=== PATIENT | male | born 1950 | race African-American/Black ===

== ENCOUNTER 2017-09-14 21:08 | Inpatient (IN) | payer OTHER ==
[2017-09-14] MEDS ORDERED: ACETAMINOPHEN 325 MG TAB PO (23:00)
[2017-09-14] MEDS ORDERED: PENDING SANTYL ORDER FOR WOUND CARE XX (23:30)
[2017-09-14] MEDS: morphine 2 MG INJ IV (23:31)
[2017-09-15 00:50] LABS: WHITE BLOOD COUNT 9.4 10^3/ul (4.8-10.8)
[2017-09-15 00:50] LABS: ABNORMAL IP MESSAGE 1; HEMATOCRIT 18.4 % (42.0-52.0); MEAN CORPUSCULAR HEMOGLOBIN 30.7 pg (29.0-33.0); MEAN CORPUSCULAR HGB CONC 34.2 g/dl (32.0-37.0); MEAN CORPUSCULAR VOLUME 89.8 fl (82.0-101.0); MEAN PLATELET VOLUME 10.2 fl (7.4-10.4); NUCLEATED RED BLOOD CELLS% 1.8 /100WBC (0.0-0.0); PLATELET COUNT 250 10^3/UL (140-415); POSITIVE DIFF @See below; RED BLOOD COUNT 2.05 10^6/ul (4.70-6.10); RED CELL DISTRIBUTION WIDTH 23.5 % (11.5-14.5)
[2017-09-15 01:05] LABS: HEMOGLOBIN 6.3 g/dl (14.0-18.0)
[2017-09-15 01:06] LABS: PATH REVIEW? YES
[2017-09-15 01:07] LABS: ADD MAN DIFF? YES
[2017-09-15 01:09] LABS: ALANINE AMINOTRANSFERASE 19 IU/L (13-69); ALBUMIN 3.3 g/dl (3.3-4.9); ALBUMIN/GLOBULIN RATIO 0.76; ALKALINE PHOSPHATASE 222 IU/L (42-121); ANION GAP 13 (8-16); ASPARTATE AMINO TRANSFERASE 31 IU/L (15-46); BILIRUBIN,INDIRECT 1.1 mg/dl (0-1.1); BILIRUBIN,TOTAL 1.4 mg/dl (0.2-1.3); BLOOD UREA NITROGEN 29 mg/dl (7-20); CALCIUM 8.7 mg/dl (8.4-10.2); CARBON DIOXIDE 22 mmol/L (21-31); CHLORIDE 110 mmol/L (97-110); CREATININE 3.45 mg/dl (0.61-1.24); GLUCOSE 138 mg/dl (70-220); PHOSPHORUS 4.5 mg/dl (2.5-4.9); POTASSIUM 4.2 mmol/L (3.5-5.1); SODIUM 141 mmol/L (135-144); TOTAL PROTEIN 7.6 g/dl (6.1-8.1)
[2017-09-15] MEDS ORDERED: SOD CHLORIDE 0.9% 250 ML IV* (01:11)
[2017-09-15 03:28] LABS: IRON 94 ug/dl (35-150)
[2017-09-15 03:37] LABS: % IRON SATURATION 45 % SAT (22-52); TOTAL IRON BINDING CAPACITY 209 ug/dl (241-421)
[2017-09-15] MEDS ORDERED: NACL 0.9% 3 ML SYG IV (04:00)
[2017-09-15] MEDS ORDERED: ALBUTEROL/IPRATROPIUM (NEB) 3 ML AMP HHN (04:00)
[2017-09-15] MEDS ORDERED: ONDANSETRON 4 MG INJ IV (04:00)
[2017-09-15] MEDS ORDERED: traMADol 50 MG TAB PO (04:00)
[2017-09-15] MEDS: morphine 2 MG INJ IV (05:18)
[2017-09-15] MEDS: FUROSEMIDE 40 MG TAB PO (05:18)
[2017-09-15 07:01] LABS: ANISOCYTOSIS 3+ (0-0); BASOPHILS % (M) 1 % (0-2); EOSINOPHILS % (M) 6 % (0-7); ERYTHROBLAST% (NRBC) (M) 1 % (0-0); GIANT THROMBO% (M) 6 % (0-0); LYMPHOCYTES #M 2.3 10^3/ul (0.8-2.9); LYMPHOCYTES % (M) 25 % (15-51); MONOCYTE #M 1.6 10^3/ul (0.3-0.9); MONOCYTES % (M) 18 % (0-11); PLATELET ESTIMATE NORMAL; POIKILOCYTOSIS 1+ (0-0); POLYCHROMASIA 3+ (0-0); SEGMENTED NEUTROPHILS (M) % 50 % (39-77); SMUDGE%M 3 % (0-0)
[2017-09-15 08:34] LABS: ADD MAN DIFF? NO
[2017-09-15 08:36] LABS: ABNORMAL IP MESSAGE 1; BASOPHIL # 0.1 10^3/ul (0.0-0.1); BASOPHILS % 1.1 % (0.0-2.0); EOSINOPHILS # 0.4 10^3/ul (0.0-0.5); EOSINOPHILS % 4.6 % (0.0-7.0); HEMATOCRIT 19.2 % (42.0-52.0); LYMPHOCYTES # 2.5 10^3/ul (0.8-2.9); LYMPHOCYTES % 27.3 % (15.0-51.0); MEAN CORPUSCULAR HEMOGLOBIN 30.6 pg (29.0-33.0); MEAN CORPUSCULAR HGB CONC 34.4 g/dl (32.0-37.0); MEAN CORPUSCULAR VOLUME 88.9 fl (82.0-101.0); MEAN PLATELET VOLUME 10.1 fl (7.4-10.4); MONOCYTE # 2.2 10^3/ul (0.3-0.9); MONOCYTES % 23.9 % (0.0-11.0); NEUTROPHIL # 3.9 10^3/ul (1.6-7.5); NUCLEATED RED BLOOD CELLS # 0.2 10^3/ul (0.0-0.0); PLATELET COUNT 272 10^3/UL (140-415); POSITIVE DIFF @See below; RED BLOOD COUNT 2.16 10^6/ul (4.70-6.10); RED CELL DISTRIBUTION WIDTH 23.2 % (11.5-14.5)
[2017-09-15 08:36] LABS: WHITE BLOOD COUNT 9.3 10^3/ul (4.8-10.8)
[2017-09-15 09:00] LABS: ALANINE AMINOTRANSFERASE 12 IU/L (13-69); ALBUMIN 3.6 g/dl (3.3-4.9); ALBUMIN/GLOBULIN RATIO 0.75; ALKALINE PHOSPHATASE 240 IU/L (42-121); ANION GAP 17 (8-16); ASPARTATE AMINO TRANSFERASE 47 IU/L (15-46); BILIRUBIN,INDIRECT 1.4 mg/dl (0-1.1); BILIRUBIN,TOTAL 1.9 mg/dl (0.2-1.3); BLOOD UREA NITROGEN 32 mg/dl (7-20); CALCIUM 9.1 mg/dl (8.4-10.2); CARBON DIOXIDE 19 mmol/L (21-31); CHLORIDE 110 mmol/L (97-110); CREATININE 3.88 mg/dl (0.61-1.24); GLUCOSE 92 mg/dl (70-220); POTASSIUM 4.4 mmol/L (3.5-5.1); SODIUM 142 mmol/L (135-144); TOTAL PROTEIN 8.4 g/dl (6.1-8.1)
[2017-09-15 09:01] LABS: HEMOGLOBIN 6.6 g/dl (14.0-18.0)
[2017-09-15] MEDS: AMLODIPINE 10 MG TAB PO (09:34)
[2017-09-15] MEDS: FINASTERIDE 5 MG TAB PO (09:35)
[2017-09-15] MEDS: METOPROLOL 25 MG TAB PO ×2 (09:35→20:42)
[2017-09-15] MEDS: HYDROCODONE/APAP (5/325) TAB PO ×2 (14:02→19:49)
[2017-09-15 17:49] LABS: LACTATE DEHYDROGENASE 777 IU/L (313-618)
[2017-09-15 18:41] LABS: ALPHA FETOPROTEIN 1.28 IU/L (0.00-7.21)
[2017-09-15] MEDS: TERAZOSIN 5 MG CAP PO (20:42)
[2017-09-16] MEDS: HYDROCODONE/APAP (5/325) TAB PO ×3 (06:22→23:40)
[2017-09-16 08:18] LABS: ADD MAN DIFF? NO
[2017-09-16 08:22] LABS: WHITE BLOOD COUNT 7.6 10^3/ul (4.8-10.8)
[2017-09-16 08:22] LABS: ABNORMAL IP MESSAGE 1; BASOPHIL # 0.1 10^3/ul (0.0-0.1); BASOPHILS % 1.3 % (0.0-2.0); EOSINOPHILS # 0.5 10^3/ul (0.0-0.5); EOSINOPHILS % 6.5 % (0.0-7.0); HEMATOCRIT 18.5 % (42.0-52.0); LYMPHOCYTES % 26.9 % (15.0-51.0); MEAN CORPUSCULAR HEMOGLOBIN 29.8 pg (29.0-33.0); MEAN CORPUSCULAR HGB CONC 33.5 g/dl (32.0-37.0); MEAN CORPUSCULAR VOLUME 88.9 fl (82.0-101.0); MEAN PLATELET VOLUME 10.8 fl (7.4-10.4); MONOCYTE # 1.7 10^3/ul (0.3-0.9); MONOCYTES % 21.7 % (0.0-11.0); NEUTROPHIL # 3.3 10^3/ul (1.6-7.5); NEUTROPHILS % 42.9 % (39.0-77.0); NUCLEATED RED BLOOD CELLS # 0.1 10^3/ul (0.0-0.0); NUCLEATED RED BLOOD CELLS% 1.7 /100WBC (0.0-0.0); PLATELET COUNT 277 10^3/UL (140-415); POSITIVE DIFF @See below; RED BLOOD COUNT 2.08 10^6/ul (4.70-6.10); RED CELL DISTRIBUTION WIDTH 23.2 % (11.5-14.5)
[2017-09-16 08:35] LABS: HEMOGLOBIN 6.2 g/dl (14.0-18.0)
[2017-09-16 09:17] LABS: ANION GAP 17 (8-16); BLOOD UREA NITROGEN 51 mg/dl (7-20); CALCIUM 8.7 mg/dl (8.4-10.2); CARBON DIOXIDE 20 mmol/L (21-31); CHLORIDE 111 mmol/L (97-110); CREATININE 4.85 mg/dl (0.61-1.24); GLUCOSE 122 mg/dl (70-220); MAGNESIUM 2.1 mg/dl (1.7-2.5); PHOSPHORUS 6.3 mg/dl (2.5-4.9); POTASSIUM 4.4 mmol/L (3.5-5.1); SODIUM 144 mmol/L (135-144)
[2017-09-16] MEDS: FOLIC ACID 1 MG TAB PO (09:20)
[2017-09-16] MEDS: FINASTERIDE 5 MG TAB PO (09:20)
[2017-09-16] MEDS: AMLODIPINE 10 MG TAB PO (09:21)
[2017-09-16] MEDS: METOPROLOL 25 MG TAB PO ×2 (09:21→20:13)
[2017-09-16 15:19] LABS: IMMEDIATE SPIN CROSSMATCH 1 2
[2017-09-16] MEDS: FUROSEMIDE 40 MG INJ IV (18:02)
[2017-09-16] MEDS: SEVELAMER 800 MG TAB PO (18:02)
[2017-09-16] MEDS ORDERED: ALBUMIN HUMAN 25% 50 ML IV (19:00)
[2017-09-16] MEDS ORDERED: SODIUM CHLORIDE 0.9% 1L BAG IV (19:00)
[2017-09-16] MEDS: TERAZOSIN 5 MG CAP PO (20:12)
[2017-09-16 22:32] LABS: HEMATOCRIT 19.5 % (38.5-50.0); HEMOGLOBIN 6.6 g/dL (13.2-17.1); MCV 88.6 fL (80.0-100.0); RDW 22.5 % (11.0-15.0)
[2017-09-17 07:27] LABS: WHITE BLOOD COUNT 6.3 10^3/ul (4.8-10.8)
[2017-09-17 07:27] LABS: ADD MAN DIFF? NO; BASOPHIL # 0.2 10^3/ul (0.0-0.1); BASOPHILS % 2.4 % (0.0-2.0); EOSINOPHILS # 0.5 10^3/ul (0.0-0.5); EOSINOPHILS % 7.3 % (0.0-7.0); HEMOGLOBIN 9.6 g/dl (14.0-18.0); MEAN CORPUSCULAR HEMOGLOBIN 30.7 pg (29.0-33.0); MEAN CORPUSCULAR HGB CONC 34.3 g/dl (32.0-37.0); MEAN CORPUSCULAR VOLUME 89.5 fl (82.0-101.0); MEAN PLATELET VOLUME 10.4 fl (7.4-10.4); NEUTROPHIL # 2.7 10^3/ul (1.6-7.5); NEUTROPHILS % 42.8 % (39.0-77.0); NUCLEATED RED BLOOD CELLS # 0.1 10^3/ul (0.0-0.0); NUCLEATED RED BLOOD CELLS% 1.9 /100WBC (0.0-0.0); PLATELET COUNT 304 10^3/UL (140-415); RED BLOOD COUNT 3.13 10^6/ul (4.70-6.10); RED CELL DISTRIBUTION WIDTH 20.9 % (11.5-14.5)
[2017-09-17 07:58] LABS: ALANINE AMINOTRANSFERASE 15 IU/L (13-69); ALBUMIN 3.8 g/dl (3.3-4.9); ALKALINE PHOSPHATASE 241 IU/L (42-121); ANION GAP 19 (8-16); ASPARTATE AMINO TRANSFERASE 26 IU/L (15-46); BILIRUBIN,TOTAL 1.2 mg/dl (0.2-1.3); BLOOD UREA NITROGEN 63 mg/dl (7-20); CALCIUM 8.9 mg/dl (8.4-10.2); CARBON DIOXIDE 20 mmol/L (21-31); CHLORIDE 111 mmol/L (97-110); CREATININE 5.85 mg/dl (0.61-1.24); GLUCOSE 122 mg/dl (70-220); POTASSIUM 4.7 mmol/L (3.5-5.1); SODIUM 145 mmol/L (135-144); TOTAL PROTEIN 8.5 g/dl (6.1-8.1)
[2017-09-17 09:49] LABS: HEPATITIS B SURFACE ANTIGEN NEGATIVE (NEGATIVE)
[2017-09-17] MEDS: HYDROCODONE/APAP (5/325) TAB PO (10:45)
[2017-09-17] MEDS: FOLIC ACID 1 MG TAB PO (10:45)
[2017-09-17] MEDS: FINASTERIDE 5 MG TAB PO (10:45)
[2017-09-17] MEDS: METOPROLOL 25 MG TAB PO (10:47)
[2017-09-17] MEDS: AMLODIPINE 10 MG TAB PO (10:47)
[2017-09-17] MEDS: SEVELAMER 800 MG TAB PO ×2 (10:47→13:32)
[2017-09-17] MEDS: HEPARIN 1000 UNITS/ML 10 ML INJ CATHETER (11:24)
[2017-09-17 13:58] LABS: OCCULT BLOOD STOOL NEGATIVE (NEGATIVE)
[2017-09-17] MEDS ORDERED: EPOETIN 4000 UNITS/1 ML INJ (ESRD) SC (17:00)
[2017-09-17 17:21] LABS: HAPTOGLOBIN <15 mg/dL (43-212)
[2017-09-17 19:37] LABS: ERYTHROPOIETIN 25.2 mIU/mL (2.6-18.5)
[2017-09-18 13:21] LABS: HEMOGLOBIN A 69.3 % (>96.0); HEMOGLOBIN A2 (QUANT) 3.1 % (1.8-3.5); HEMOGLOBIN F <1.0 % (<2.0); HEMOGLOBIN S 27.6 %
== END 2017-09-17 18:06 | disposition home or self-care (01) | DRG 811 ==
LOC: MS4 21:08
PROC: 30233N1 Transfusion of Nonautologous Red Blood Cells into Peripheral Vein, Percutaneous Approach (ICD-10-PCS; principal; 2017-09-16)
DX: D57.00 Hb-SS disease with crisis, unspecified (principal); N18.6 End stage renal disease; I12.0 Hypertensive chronic kidney disease with stage 5 chronic kidney disease or end stage renal disease; Z99.2 Dependence on renal dialysis; D63.1 Anemia in chronic kidney disease; N40.0 Benign prostatic hyperplasia without lower urinary tract symptoms; K70.30 Alcoholic cirrhosis of liver without ascites; M25.512 Pain in left shoulder; Z91.81 History of falling
CPT/HCPCS: 36430; 71045; 73030; 76705; 80048; 80053; 82105; 82270; 82668; 82728; 83010; 83020; 83540; 83615; 83735; 84100; 85025; 86850; 86870; 86880; 86900; 86901; 86902; 86920; 87340; 90935

== ENCOUNTER 2017-11-30 20:59 | Inpatient (IN) | payer OTHER ==
[2017-11-30] MEDS ORDERED: morphine 2 MG INJ IV (23:00)
[2017-11-30] MEDS ORDERED: NACL 0.9% 3 ML SYG IV (23:00)
[2017-11-30] MEDS ORDERED: DOCUSATE SODIUM 100 MG CAP PO (23:00)
[2017-11-30] MEDS ORDERED: BISACODYL (EC) 5 MG TAB PO (23:00)
[2017-11-30] MEDS ORDERED: METOPROLOL 25 MG TAB PO (23:00)
[2017-11-30] MEDS ORDERED: NITROGLYCERIN (SL) 0.4 MG TAB SL (23:00)
[2017-11-30] MEDS ORDERED: ONDANSETRON 4 MG INJ IV (23:00)
[2017-11-30 23:31] LABS: ADD MAN DIFF? NO
[2017-11-30 23:34] LABS: WHITE BLOOD COUNT 7.8 10^3/ul (4.8-10.8)
[2017-11-30 23:34] LABS: ABNORMAL IP MESSAGE 1; BASOPHIL # 0.1 10^3/ul (0.0-0.1); BASOPHILS % 1.2 % (0.0-2.0); EOSINOPHILS # 0.1 10^3/ul (0.0-0.5); EOSINOPHILS % 1.7 % (0.0-7.0); HEMATOCRIT 21.9 % (42.0-52.0); HEMOGLOBIN 7.4 g/dl (14.0-18.0); LYMPHOCYTES # 1.8 10^3/ul (0.8-2.9); LYMPHOCYTES % 23.5 % (15.0-51.0); MEAN CORPUSCULAR HEMOGLOBIN 30.5 pg (29.0-33.0); MEAN CORPUSCULAR HGB CONC 33.8 g/dl (32.0-37.0); MEAN CORPUSCULAR VOLUME 90.1 fl (82.0-101.0); MEAN PLATELET VOLUME 9.9 fl (7.4-10.4); MONOCYTE # 1.6 10^3/ul (0.3-0.9); MONOCYTES % 20.3 % (0.0-11.0); NEUTROPHIL # 4.1 10^3/ul (1.6-7.5); NEUTROPHILS % 52.7 % (39.0-77.0); NUCLEATED RED BLOOD CELLS # 0.1 10^3/ul (0.0-0.0); NUCLEATED RED BLOOD CELLS% 0.8 /100WBC (0.0-0.0); PLATELET COUNT 356 10^3/UL (140-415); POSITIVE DIFF @See below; RED BLOOD COUNT 2.43 10^6/ul (4.70-6.10); RED CELL DISTRIBUTION WIDTH 19.5 % (11.5-14.5)
[2017-12-01 00:08] LABS: CREATINE KINASE 31 IU/L (23-200)
[2017-12-01 00:10] LABS: ALANINE AMINOTRANSFERASE 22 IU/L (13-69); ALBUMIN 4.1 g/dl (3.3-4.9); ALBUMIN/GLOBULIN RATIO 0.93; ALKALINE PHOSPHATASE 236 IU/L (42-121); ANION GAP 17 (8-16); ASPARTATE AMINO TRANSFERASE 32 IU/L (15-46); BILIRUBIN,INDIRECT 0.9 mg/dl (0-1.1); BILIRUBIN,TOTAL 0.9 mg/dl (0.2-1.3); BLOOD UREA NITROGEN 40 mg/dl (7-20); CALCIUM 8.9 mg/dl (8.4-10.2); CARBON DIOXIDE 25 mmol/L (21-31); CHLORIDE 99 mmol/L (97-110); CREATININE 4.68 mg/dl (0.61-1.24); GLUCOSE 135 mg/dl (70-220); MAGNESIUM 1.7 mg/dl (1.7-2.5); SODIUM 137 mmol/L (135-144); TOTAL PROTEIN 8.5 g/dl (6.1-8.1)
[2017-12-01 00:15] LABS: CK INDEX 0.7; CK-MB 0.23 ng/ml (0.0-2.4); TROPONIN-I 0.048 ng/ml (0.000-0.120)
[2017-12-01] MEDS: TAMSULOSIN (SR) 0.4 MG CAP PO ×2 (00:25→20:38)
[2017-12-01 05:20] LABS: ADD MAN DIFF? NO
[2017-12-01 05:25] LABS: WHITE BLOOD COUNT 7.9 10^3/ul (4.8-10.8)
[2017-12-01 05:25] LABS: ABNORMAL IP MESSAGE 1; BASOPHIL # 0.1 10^3/ul (0.0-0.1); BASOPHILS % 1.1 % (0.0-2.0); EOSINOPHILS # 0.1 10^3/ul (0.0-0.5); EOSINOPHILS % 1.6 % (0.0-7.0); HEMATOCRIT 20.2 % (42.0-52.0); LYMPHOCYTES # 1.9 10^3/ul (0.8-2.9); LYMPHOCYTES % 23.6 % (15.0-51.0); MEAN CORPUSCULAR HEMOGLOBIN 29.7 pg (29.0-33.0); MEAN CORPUSCULAR HGB CONC 33.7 g/dl (32.0-37.0); MEAN CORPUSCULAR VOLUME 88.2 fl (82.0-101.0); MEAN PLATELET VOLUME 9.9 fl (7.4-10.4); MONOCYTE # 1.6 10^3/ul (0.3-0.9); MONOCYTES % 20.4 % (0.0-11.0); NEUTROPHIL # 4.2 10^3/ul (1.6-7.5); NEUTROPHILS % 52.8 % (39.0-77.0); NUCLEATED RED BLOOD CELLS # 0.1 10^3/ul (0.0-0.0); NUCLEATED RED BLOOD CELLS% 0.8 /100WBC (0.0-0.0); PLATELET COUNT 334 10^3/UL (140-415); POSITIVE DIFF @See below; RED BLOOD COUNT 2.29 10^6/ul (4.70-6.10); RED CELL DISTRIBUTION WIDTH 19.5 % (11.5-14.5)
[2017-12-01 05:56] LABS: HEMOGLOBIN A1C 6.1 % (0-5.9)
[2017-12-01 05:59] LABS: CREATINE KINASE 26 IU/L (23-200)
[2017-12-01 06:01] LABS: ALANINE AMINOTRANSFERASE 24 IU/L (13-69); ALBUMIN 3.8 g/dl (3.3-4.9); ALBUMIN/GLOBULIN RATIO 0.82; ALKALINE PHOSPHATASE 243 IU/L (42-121); ANION GAP 15 (8-16); ASPARTATE AMINO TRANSFERASE 25 IU/L (15-46); BILIRUBIN,INDIRECT 0.9 mg/dl (0-1.1); BILIRUBIN,TOTAL 0.9 mg/dl (0.2-1.3); BLOOD UREA NITROGEN 41 mg/dl (7-20); CALCIUM 8.6 mg/dl (8.4-10.2); CARBON DIOXIDE 26 mmol/L (21-31); CHLORIDE 101 mmol/L (97-110); CREATININE 5.32 mg/dl (0.61-1.24); GLUCOSE 113 mg/dl (70-220); MAGNESIUM 1.8 mg/dl (1.7-2.5); POTASSIUM 3.2 mmol/L (3.5-5.1); SODIUM 139 mmol/L (135-144); TOTAL PROTEIN 8.4 g/dl (6.1-8.1)
[2017-12-01 06:05] LABS: HEMOGLOBIN 6.8 g/dl (14.0-18.0)
[2017-12-01 06:11] LABS: CK INDEX 1.3; CK-MB 0.33 ng/ml (0.0-2.4); TROPONIN-I 0.058 ng/ml (0.000-0.120)
[2017-12-01] MEDS: POTASSIUM CHLORIDE (SR) 20 MEQ TAB PO ×2 (06:46→16:48)
[2017-12-01] MEDS ORDERED: SEVELAMER CARBONATE 800 MG TABLET PO (07:55)
[2017-12-01 08:12] LABS: RETICULOCYTE COUNT # 0.164 X10^6 (0.020-0.110); RETICULOCYTE COUNT % 7.2 % (0.5-1.5)
[2017-12-01 08:12] LABS: RETICULOCYTE RBC 2.27
[2017-12-01] MEDS: FOLIC ACID 1 MG TAB PO ×2 (08:38→20:38)
[2017-12-01] MEDS: AMLODIPINE 10 MG TAB PO (08:39)
[2017-12-01] MEDS: FINASTERIDE 5 MG TAB PO (08:39)
[2017-12-01] MEDS: METOPROLOL 50 MG TAB PO ×2 (09:01→20:40)
[2017-12-01 13:03] LABS: AHG CROSSMATCH 1 1
[2017-12-01 15:23] LABS: IRON 171 ug/dl (35-150)
[2017-12-01 15:32] LABS: % IRON SATURATION 87 % SAT (22-52); TOTAL IRON BINDING CAPACITY 196 ug/dl (241-421)
[2017-12-01] MEDS: ACETAMINOPHEN 325 MG TAB PO (15:49)
[2017-12-01 16:21] LABS: IMMUNOGLOBULIN A 675 mg/dl (70-400); IMMUNOGLOBULIN G 2384 mg/dl (700-1600); IMMUNOGLOBULIN M 49 mg/dl (40-230)
[2017-12-01] MEDS: HYDROCODONE/APAP (5/325) TAB PO (16:48)
[2017-12-01] MEDS: EPOETIN 4000 UNITS/1 ML INJ (ESRD) SC (17:59)
[2017-12-01] MEDS: TERAZOSIN 5 MG CAP PO (20:39)
[2017-12-01] MEDS ORDERED: TAMSULOSIN (SR) 0.4 MG CAP PO (21:00)
[2017-12-01] MEDS: ZOLPIDEM 5 MG TAB PO (23:24)
[2017-12-02 06:37] LABS: ADD MAN DIFF? NO
[2017-12-02 06:47] LABS: WHITE BLOOD COUNT 9.6 10^3/ul (4.8-10.8)
[2017-12-02 06:47] LABS: ABNORMAL IP MESSAGE 1; BASOPHIL # 0.1 10^3/ul (0.0-0.1); EOSINOPHILS # 0.2 10^3/ul (0.0-0.5); EOSINOPHILS % 2.5 % (0.0-7.0); HEMATOCRIT 24.4 % (42.0-52.0); HEMOGLOBIN 8.2 g/dl (14.0-18.0); LYMPHOCYTES % 20.5 % (15.0-51.0); MEAN CORPUSCULAR HEMOGLOBIN 30.3 pg (29.0-33.0); MEAN CORPUSCULAR HGB CONC 33.6 g/dl (32.0-37.0); MEAN PLATELET VOLUME 10.1 fl (7.4-10.4); MONOCYTE # 1.9 10^3/ul (0.3-0.9); MONOCYTES % 20.3 % (0.0-11.0); NEUTROPHIL # 5.3 10^3/ul (1.6-7.5); NUCLEATED RED BLOOD CELLS # 0.1 10^3/ul (0.0-0.0); NUCLEATED RED BLOOD CELLS% 0.5 /100WBC (0.0-0.0); PLATELET COUNT 352 10^3/UL (140-415); POSITIVE DIFF @See below; RED BLOOD COUNT 2.71 10^6/ul (4.70-6.10)
[2017-12-02 07:10] LABS: ANION GAP 17 (8-16); BLOOD UREA NITROGEN 53 mg/dl (7-20); CARBON DIOXIDE 22 mmol/L (21-31); CHLORIDE 104 mmol/L (97-110); CREATININE 6.68 mg/dl (0.61-1.24); GLUCOSE 105 mg/dl (70-220); SODIUM 139 mmol/L (135-144)
[2017-12-02] MEDS: FINASTERIDE 5 MG TAB PO (09:44)
[2017-12-02] MEDS: FOLIC ACID 1 MG TAB PO (09:44)
[2017-12-02] MEDS: METOPROLOL 50 MG TAB PO (09:45)
[2017-12-02] MEDS: AMLODIPINE 10 MG TAB PO (09:45)
[2017-12-02] MEDS ORDERED: morphine LIQ (10 MG/5 ML) CUP PO (15:00)
[2017-12-19 14:04] LABS: ALBUMIN 3.6 g/dL (3.8-4.8); ALPHA-1-GLOBULINS 0.4 g/dL (0.2-0.3); ALPHA-2-GLOBULINS 0.6 g/dL (0.5-0.9); BETA 2 GLOBULINS 0.7 g/dL (0.2-0.5); BETA GLOBULINS 0.4 g/dL (0.4-0.6); GAMMA GLOBULINS 2.2 g/dL (0.8-1.7); PROTEIN, TOTAL 7.9 g/dL (6.1-8.1)
== END 2017-12-02 15:30 | disposition home or self-care (01) | DRG 811 ==
LOC: TEL 20:59
PROC: 30233N1 Transfusion of Nonautologous Red Blood Cells into Peripheral Vein, Percutaneous Approach (ICD-10-PCS; principal; 2017-12-01)
DX: D57.1 Sickle-cell disease without crisis (principal); N18.6 End stage renal disease; I24.8 Other forms of acute ischemic heart disease; K86.1 Other chronic pancreatitis; I12.0 Hypertensive chronic kidney disease with stage 5 chronic kidney disease or end stage renal disease; I48.2 Chronic atrial fibrillation; D63.8 Anemia in other chronic diseases classified elsewhere; M81.0 Age-related osteoporosis without current pathological fracture; K70.30 Alcoholic cirrhosis of liver without ascites; F10.10 Alcohol abuse, uncomplicated; Z99.2 Dependence on renal dialysis
CPT/HCPCS: 36430; 71250; 74176; 80048; 80053; 82550; 82553; 82728; 82784; 83036; 83540; 83735; 84155; 84165; 84443; 84484; 85025; 85045; 86320; 86325; 86850; 86870; 86900; 86901; 86920; 87081; 93306

== ENCOUNTER 2018-01-26 11:33 | Inpatient (IN) | payer OTHER ==
[2018-01-26] MEDS: traMADol 50 MG TAB PO ×2 (12:12→18:25)
[2018-01-26] MEDS: SOD CHLORIDE 0.9% 250 ML IV (12:18)
[2018-01-26 12:25] LABS: ADD MAN DIFF? NO
[2018-01-26 12:33] LABS: WHITE BLOOD COUNT 8.2 10^3/ul (4.8-10.8)
[2018-01-26 12:33] LABS: ABNORMAL IP MESSAGE 1; BASOPHIL # 0.1 10^3/ul (0.0-0.1); EOSINOPHILS # 0.3 10^3/ul (0.0-0.5); EOSINOPHILS % 3.2 % (0.0-7.0); HEMATOCRIT 16.5 % (42.0-52.0); LYMPHOCYTES # 2.6 10^3/ul (0.8-2.9); LYMPHOCYTES % 31.7 % (15.0-51.0); MEAN CORPUSCULAR HEMOGLOBIN 28.9 pg (29.0-33.0); MEAN CORPUSCULAR HGB CONC 33.3 g/dl (32.0-37.0); MEAN CORPUSCULAR VOLUME 86.8 fl (82.0-101.0); MEAN PLATELET VOLUME 10.5 fl (7.4-10.4); MONOCYTE # 1.4 10^3/ul (0.3-0.9); MONOCYTES % 16.9 % (0.0-11.0); NEUTROPHIL # 3.8 10^3/ul (1.6-7.5); NEUTROPHILS % 46.8 % (39.0-77.0); NUCLEATED RED BLOOD CELLS # 0.1 10^3/ul (0.0-0.0); NUCLEATED RED BLOOD CELLS% 0.7 /100WBC (0.0-0.0); PLATELET COUNT 431 10^3/UL (140-415); POSITIVE DIFF @See below; RED CELL DISTRIBUTION WIDTH 22.5 % (11.5-14.5)
[2018-01-26 12:37] LABS: HEMOGLOBIN 5.5 g/dl (14.0-18.0)
[2018-01-26 12:39] LABS: PATH REVIEW? YES
[2018-01-26 12:50] LABS: INR 1.04; PARTIAL THROMBOPLASTIN TIME 32.6 Sec (25.0-35.0); PROTIME 13.7 Sec (11.9-14.9); PT RATIO 1.1
[2018-01-26] MEDS ORDERED: ACETAMINOPHEN 325 MG TAB PO (13:00)
[2018-01-26 13:02] LABS: ALANINE AMINOTRANSFERASE 79 IU/L (13-69); ALBUMIN 3.7 g/dl (3.3-4.9); ALBUMIN/GLOBULIN RATIO 0.77; ALKALINE PHOSPHATASE 532 IU/L (42-121); ANION GAP 21 (8-16); ASPARTATE AMINO TRANSFERASE 67 IU/L (15-46); BILIRUBIN,INDIRECT 0.6 mg/dl (0-1.1); BILIRUBIN,TOTAL 0.6 mg/dl (0.2-1.3); BLOOD UREA NITROGEN 57 mg/dl (7-20); CALCIUM 9.1 mg/dl (8.4-10.2); CARBON DIOXIDE 21 mmol/L (21-31); CHLORIDE 102 mmol/L (97-110); CREATININE 6.51 mg/dl (0.61-1.24); GLUCOSE 96 mg/dl (70-220); POTASSIUM 4.5 mmol/L (3.5-5.1); SODIUM 139 mmol/L (135-144); TOTAL PROTEIN 8.5 g/dl (6.1-8.1)
[2018-01-26 13:06] LABS: ANISOCYTOSIS 2+ (0-0); EOSINOPHILS % (M) 3 % (0-7); GIANT THROMBO% (M) 3 % (0-0); HYPOCHROMASIA 3+ (0-0); LYMPHOCYTES #M 3.2 10^3/ul (0.8-2.9); LYMPHOCYTES % (M) 40 % (15-51); MONOCYTE #M 0.9 10^3/ul (0.3-0.9); MONOCYTES % (M) 12 % (0-11); MYELOCYTES #M 0.1 10^3/ul (0.0-0.0); MYELOCYTES % (M) 2 % (0-0); OVALOCYTES 1+ (0-0); PLATELET ESTIMATE NORMAL; POIKILOCYTOSIS 1+ (0-0); POLYCHROMASIA 3+ (0-0); SEGMENTED NEUTROPHILS (M) % 43 % (39-77); SMUDGE%M 9 % (0-0); TARGET CELLS 3+ (0-0); TEAR DROP CELLS 1+ (0-0)
[2018-01-26 13:13] LABS: TROPONIN-I 0.016 ng/ml (0.000-0.120)
[2018-01-26] MEDS: ONDANSETRON 4 MG INJ IV (13:45)
[2018-01-26] MEDS: morphine 4 MG/ML VIAL IV (13:45)
[2018-01-26] MEDS ORDERED: ONDANSETRON 4 MG INJ IV (15:00)
[2018-01-26] MEDS ORDERED: NACL 0.9% 3 ML SYG IV (15:00)
[2018-01-27] MEDS: traMADol 50 MG TAB PO ×3 (05:58→20:54)
[2018-01-27 07:06] LABS: ADD MAN DIFF? NO
[2018-01-27 07:08] LABS: WHITE BLOOD COUNT 8.4 10^3/ul (4.8-10.8)
[2018-01-27 07:08] LABS: ABNORMAL IP MESSAGE 1; BASOPHILS % 0.4 % (0.0-2.0); EOSINOPHILS # 0.3 10^3/ul (0.0-0.5); EOSINOPHILS % 3.5 % (0.0-7.0); HEMATOCRIT 16.8 % (42.0-52.0); LYMPHOCYTES # 2.1 10^3/ul (0.8-2.9); LYMPHOCYTES % 25.5 % (15.0-51.0); MEAN CORPUSCULAR HEMOGLOBIN 29.3 pg (29.0-33.0); MEAN CORPUSCULAR HGB CONC 33.3 g/dl (32.0-37.0); MEAN PLATELET VOLUME 10.5 fl (7.4-10.4); MONOCYTE # 1.2 10^3/ul (0.3-0.9); MONOCYTES % 14.6 % (0.0-11.0); NEUTROPHIL # 4.7 10^3/ul (1.6-7.5); NEUTROPHILS % 55.3 % (39.0-77.0); NUCLEATED RED BLOOD CELLS # 0.1 10^3/ul (0.0-0.0); NUCLEATED RED BLOOD CELLS% 1.3 /100WBC (0.0-0.0); PLATELET COUNT 366 10^3/UL (140-415); POSITIVE DIFF @See below; RED BLOOD COUNT 1.91 10^6/ul (4.70-6.10); RED CELL DISTRIBUTION WIDTH 19.6 % (11.5-14.5)
[2018-01-27 07:12] LABS: HEMOGLOBIN 5.6 g/dl (14.0-18.0)
[2018-01-27] MEDS: SOD CHLORIDE 0.9% 250 ML IV* (07:30)
[2018-01-27 07:57] LABS: ALANINE AMINOTRANSFERASE 63 IU/L (13-69); ALBUMIN 3.3 g/dl (3.3-4.9); ALBUMIN/GLOBULIN RATIO 0.76; ALKALINE PHOSPHATASE 415 IU/L (42-121); ANION GAP 20 (8-16); ASPARTATE AMINO TRANSFERASE 40 IU/L (15-46); BILIRUBIN,INDIRECT 0.9 mg/dl (0-1.1); BILIRUBIN,TOTAL 0.9 mg/dl (0.2-1.3); BLOOD UREA NITROGEN 57 mg/dl (7-20); CALCIUM 8.7 mg/dl (8.4-10.2); CARBON DIOXIDE 21 mmol/L (21-31); CHLORIDE 104 mmol/L (97-110); CREATININE 7.23 mg/dl (0.61-1.24); GLUCOSE 90 mg/dl (70-220); POTASSIUM 4.7 mmol/L (3.5-5.1); SODIUM 140 mmol/L (135-144); TOTAL PROTEIN 7.6 g/dl (6.1-8.1)
[2018-01-27] MEDS: ENOXAPARIN 30 MG/0.3 ML SYG SC (08:16)
[2018-01-27 11:06] LABS: AHG CROSSMATCH 1 4
[2018-01-27 19:47] LABS: ADD MAN DIFF? NO
[2018-01-27 19:48] LABS: WHITE BLOOD COUNT 7.9 10^3/ul (4.8-10.8)
[2018-01-27 19:48] LABS: BASOPHIL # 0.1 10^3/ul (0.0-0.1); EOSINOPHILS # 0.3 10^3/ul (0.0-0.5); HEMATOCRIT 21.9 % (42.0-52.0); HEMOGLOBIN 7.4 g/dl (14.0-18.0); LYMPHOCYTES # 2.4 10^3/ul (0.8-2.9); LYMPHOCYTES % 30.1 % (15.0-51.0); MEAN CORPUSCULAR HEMOGLOBIN 28.9 pg (29.0-33.0); MEAN CORPUSCULAR HGB CONC 33.8 g/dl (32.0-37.0); MEAN CORPUSCULAR VOLUME 85.5 fl (82.0-101.0); MEAN PLATELET VOLUME 10.2 fl (7.4-10.4); MONOCYTE # 1.1 10^3/ul (0.3-0.9); NEUTROPHILS % 50.3 % (39.0-77.0); NUCLEATED RED BLOOD CELLS # 0.2 10^3/ul (0.0-0.0); NUCLEATED RED BLOOD CELLS% 2.9 /100WBC (0.0-0.0); PLATELET COUNT 362 10^3/UL (140-415); RED BLOOD COUNT 2.56 10^6/ul (4.70-6.10); RED CELL DISTRIBUTION WIDTH 17.8 % (11.5-14.5)
== END 2018-01-27 21:35 | disposition home or self-care (01) | DRG 811 ==
LOC: E/R 11:33 → PP2 12:48
DX: D57.00 Hb-SS disease with crisis, unspecified (principal); N18.6 End stage renal disease; Z99.2 Dependence on renal dialysis; D63.1 Anemia in chronic kidney disease
CPT/HCPCS: 36415; 36430; 80053; 84484; 85025; 85610; 85730; 86644; 86850; 86870; 86900; 86901; 86920; 86945; 93005; 99291-25

== ENCOUNTER 2018-02-07 12:10 | Emergency (ER) | payer SELFPAY, OTHER | END 2018-02-07 13:01 | disposition left against medical advice (07) | LOC: E/R 13:01 | DX: Z53.21 Procedure and treatment not carried out due to patient leaving prior to being seen by health care provider (principal) ==

== ENCOUNTER 2018-11-06 13:28 | Inpatient (IN) | payer MEDICARE, OTHER ==
[2018-11-06 14:53] LABS: WHITE BLOOD COUNT 16.5 10^3/ul (4.8-10.8)
[2018-11-06 14:53] LABS: ABNORMAL IP MESSAGE 1; HEMATOCRIT 12.9 % (42.0-52.0); MEAN CORPUSCULAR HEMOGLOBIN 31.7 pg (29.0-33.0); MEAN CORPUSCULAR HGB CONC 34.1 g/dl (32.0-37.0); MEAN CORPUSCULAR VOLUME 92.8 fl (82.0-101.0); PLATELET COUNT 286 10^3/UL (140-415); POSITIVE DIFF @See below; RED BLOOD COUNT 1.39 10^6/ul (4.70-6.10); RED CELL DISTRIBUTION WIDTH 24.9 % (11.5-14.5)
[2018-11-06 14:56] LABS: HEMOGLOBIN 4.4 g/dl (14.0-18.0)
[2018-11-06 14:57] LABS: ADD MAN DIFF? YES
[2018-11-06] MEDS: HYDROmorphONE 1 MG/ML SYG IV (15:02)
[2018-11-06] MEDS: HYDROCODONE/APAP (5/325) TAB PO ×2 (15:07→22:05)
[2018-11-06 15:12] LABS: INR 1.51; PROTIME 18.3 Sec (11.9-14.9); PT RATIO 1.4
[2018-11-06 15:13] LABS: PARTIAL THROMBOPLASTIN TIME 37.5 Sec (23.0-35.0)
[2018-11-06 15:15] LABS: ALANINE AMINOTRANSFERASE 17 IU/L (13-69); ALBUMIN 4.1 g/dl (3.3-4.9); ALBUMIN/GLOBULIN RATIO 0.97; ALKALINE PHOSPHATASE 221 IU/L (42-121); ANION GAP 35 (5-13); ASPARTATE AMINO TRANSFERASE 40 IU/L (15-46); BLOOD UREA NITROGEN 63 mg/dl (7-20); CALCIUM 9.2 mg/dl (8.4-10.2); CHLORIDE 98 mmol/L (97-110); CREATININE 13.17 mg/dl (0.61-1.24); Estimated GFR 5 mL/min (>60); GLUCOSE 66 mg/dl (70-220); SODIUM 140 mmol/L (135-144); TOTAL PROTEIN 8.3 g/dl (6.1-8.1)
[2018-11-06 15:19] LABS: POTASSIUM 7.8 mmol/L (3.5-5.1)
[2018-11-06 15:20] LABS: CARBON DIOXIDE 7 mmol/L (21-31)
[2018-11-06 15:30] LABS: TROPONIN-I 0.134 ng/ml (0.000-0.120)
[2018-11-06] MEDS ORDERED: ONDANSETRON 4 MG INJ IV (15:30)
[2018-11-06] MEDS ORDERED: ACETAMINOPHEN 325 MG TAB PO (15:30)
[2018-11-06] MEDS: PIPER-TAZO 3.375 GM IV (PMX) 100 ML IVPB (15:31)
[2018-11-06] MEDS: ONDANSETRON 4 MG INJ IV (15:34)
[2018-11-06 16:01] LABS: LYMPHOCYTES # 1.8 10^3/ul (0.8-2.9); LYMPHOCYTES #M 1.8 10^3/ul (0.8-2.9); LYMPHOCYTES % (M) 11 % (15-51); MONOCYTE # 2.3 10^3/ul (0.3-0.9); MONOCYTE #M 2.3 10^3/ul (0.3-0.9); MONOCYTES % (M) 14 % (0-11); SEGMENTED NEUTROPHILS (M) % 75 % (39-77)
[2018-11-06 16:03] LABS: PLATELET ESTIMATE NORMAL; SICKLE CELL 2+ (0-0)
[2018-11-06] MEDS: CA CHLORIDE 10% 10 ML SYRINGE IV (16:03)
[2018-11-06] MEDS: NA POLYST SULFON 15 GM/60 ML BTL PO (16:03)
[2018-11-06] MEDS: NA BICARBONATE 8.4% 50 ML SYG IV (16:04)
[2018-11-06] MEDS: morphine 4 MG/ML VIAL IV (16:04)
[2018-11-06 16:08] LABS: LACTIC ACID 11.7 mmol/L (0.5-2.0)
[2018-11-06] MEDS: VANCOMYCIN 1 GM (PMX) 250 ML IVPB (16:09)
[2018-11-06] MEDS ORDERED: NACL 0.9% 3 ML SYG IV (16:30)
[2018-11-06] MEDS ORDERED: SEVELAMER 800 MG TAB PO (18:00)
[2018-11-06] MEDS: SEVELAMER CARBONATE 800 MG TABLET PO (18:12)
[2018-11-06 18:19] LABS: IRON 229 ug/dl (35-150)
[2018-11-06 18:28] LABS: % IRON SATURATION 136 % SAT (22-52); TOTAL IRON BINDING CAPACITY 168 ug/dl (241-421)
[2018-11-06 18:46] LABS: HEPATITIS B SURFACE ANTIGEN NEGATIVE (NEGATIVE)
[2018-11-06 19:01] LABS: HEPATITIS B SURFACE ANTIBODY NEGATIVE (NEGATIVE)
[2018-11-06] MEDS: SOD CHLORIDE 0.9% 0 ML IV (19:45)
[2018-11-07 05:31] LABS: WHITE BLOOD COUNT 19.8 10^3/ul (4.8-10.8)
[2018-11-07 05:31] LABS: ABNORMAL IP MESSAGE 1; HEMATOCRIT 16.3 % (42.0-52.0); MEAN CORPUSCULAR HEMOGLOBIN 31.3 pg (29.0-33.0); MEAN CORPUSCULAR HGB CONC 34.4 g/dl (32.0-37.0); MEAN CORPUSCULAR VOLUME 91.1 fl (82.0-101.0); MEAN PLATELET VOLUME 10.6 fl (7.4-10.4); NUCLEATED RED BLOOD CELLS% 10.6 /100WBC (0.0-0.0); PLATELET COUNT 305 10^3/UL (140-415); POSITIVE DIFF @See below; RED BLOOD COUNT 1.79 10^6/ul (4.70-6.10); RED CELL DISTRIBUTION WIDTH 22.9 % (11.5-14.5)
[2018-11-07] MEDS: HYDROCODONE/APAP (5/325) TAB PO ×3 (05:57→22:13)
[2018-11-07 06:19] LABS: ALANINE AMINOTRANSFERASE 41 IU/L (13-69); ALBUMIN/GLOBULIN RATIO 0.93; ALKALINE PHOSPHATASE 212 IU/L (42-121); ANION GAP 19 (5-13); ASPARTATE AMINO TRANSFERASE 85 IU/L (15-46); BILIRUBIN,INDIRECT 1.2 mg/dl (0-1.1); BILIRUBIN,TOTAL 1.2 mg/dl (0.2-1.3); BLOOD UREA NITROGEN 36 mg/dl (7-20); CALCIUM 8.8 mg/dl (8.4-10.2); CARBON DIOXIDE 25 mmol/L (21-31); CHLORIDE 99 mmol/L (97-110); CREATININE 6.56 mg/dl (0.61-1.24); Estimated GFR 10 mL/min (>60); GLUCOSE 77 mg/dl (70-220); POTASSIUM 5.3 mmol/L (3.5-5.1); SODIUM 143 mmol/L (135-144); TOTAL PROTEIN 8.3 g/dl (6.1-8.1)
[2018-11-07 06:29] LABS: ADD MAN DIFF? YES; HEMOGLOBIN 5.6 g/dl (14.0-18.0)
[2018-11-07] MEDS: SEVELAMER CARBONATE 800 MG TABLET PO ×3 (07:36→18:17)
[2018-11-07 09:20] LABS: LACTIC ACID 1.2 mmol/L (0.5-2.0)
[2018-11-07 09:51] LABS: ANISOCYTOSIS 2+ (0-0); BAND NEUTROPHILS #M 0.1 10^3/ul (0.0-0.6); BAND NEUTROPHILS % (M) 1 % (0-4); ERYTHROBLAST% (NRBC) (M) 13 % (0-0); GIANT THROMBO% (M) 1 % (0-0); HYPOCHROMASIA 1+ (0-0); LYMPHOCYTES #M 2.1 10^3/ul (0.8-2.9); LYMPHOCYTES % (M) 11 % (15-51); MONOCYTE #M 1.7 10^3/ul (0.3-0.9); MONOCYTES % (M) 9 % (0-11); PLATELET ESTIMATE NORMAL; POIKILOCYTOSIS 2+ (0-0); POLYCHROMASIA 3+ (0-0); SEG NEUT #M 15.7 10^3/ul (1.6-7.5); SEGMENTED NEUTROPHILS (M) % 79 % (39-77); SICKLE CELL 2+ (0-0); SMUDGE%M 3 % (0-0); TARGET CELLS 3+ (0-0)
[2018-11-07 10:06] LABS: AHG CROSSMATCH 1 5
[2018-11-07] MEDS: HEPARIN 1000 UNITS/ML 10 ML INJ CATHETER (11:34)
[2018-11-07] MEDS: EPOETIN ALFA-EPBX (ESRD) 10,000 UNIT/ML VIAL SC (18:19)
[2018-11-07 22:23] LABS: HEMATOCRIT 23.4 % (42.0-52.0)
[2018-11-08 07:49] LABS: ABNORMAL IP MESSAGE 1; HEMATOCRIT 25.4 % (42.0-52.0); HEMOGLOBIN 8.5 g/dl (14.0-18.0); MEAN CORPUSCULAR HEMOGLOBIN 30.4 pg (29.0-33.0); MEAN CORPUSCULAR HGB CONC 33.5 g/dl (32.0-37.0); MEAN CORPUSCULAR VOLUME 90.7 fl (82.0-101.0); MEAN PLATELET VOLUME 10.6 fl (7.4-10.4); NUCLEATED RED BLOOD CELLS% 31.1 /100WBC (0.0-0.0); PLATELET COUNT 313 10^3/UL (140-415); POSITIVE DIFF @See below; RED CELL DISTRIBUTION WIDTH 21.1 % (11.5-14.5)
[2018-11-08 07:49] LABS: WHITE BLOOD COUNT 14.1 10^3/ul (4.8-10.8)
[2018-11-08 07:57] LABS: ADD MAN DIFF? YES
[2018-11-08 08:21] LABS: ANION GAP 18 (5-13); BLOOD UREA NITROGEN 27 mg/dl (7-20); CALCIUM 8.8 mg/dl (8.4-10.2); CARBON DIOXIDE 23 mmol/L (21-31); CHLORIDE 100 mmol/L (97-110); CREATININE 4.63 mg/dl (0.61-1.24); Estimated GFR 15 mL/min (>60); GLUCOSE 79 mg/dl (70-220); MAGNESIUM 2.3 mg/dl (1.7-2.5); PHOSPHORUS 4.7 mg/dl (2.5-4.9); POTASSIUM 4.1 mmol/L (3.5-5.1); SODIUM 141 mmol/L (135-144)
[2018-11-08] MEDS: SEVELAMER CARBONATE 800 MG TABLET PO ×3 (09:03→18:16)
[2018-11-08 09:10] LABS: ANISOCYTOSIS 1+ (0-0); BAND NEUTROPHILS #M 0.1 10^3/ul (0.0-0.6); BAND NEUTROPHILS % (M) 1 % (0-4); ELLIPTO 1+ (0-0); EOSINOPHILS % (M) 4 % (0-7); ERYTHROBLAST% (NRBC) (M) 41 % (0-0); GIANT THROMBO% (M) 9 % (0-0); LYMPHOCYTES #M 3.1 10^3/ul (0.8-2.9); LYMPHOCYTES % (M) 22 % (15-51); MONOCYTE #M 1.4 10^3/ul (0.3-0.9); MONOCYTES % (M) 10 % (0-11); MYELOCYTES #M 0.1 10^3/ul (0.0-0.0); MYELOCYTES % (M) 1 % (0-0); OVALOCYTES 1+ (0-0); PLATELET ESTIMATE NORMAL; POIKILOCYTOSIS 1+ (0-0); POLYCHROMASIA 3+ (0-0); REACTIVE LYMPHOCYTES #M 0.2 10^3/ul (0.0-0.0); REACTIVE LYMPHOCYTES% (M) 2 % (0-0); SEG NEUT #M 8.5 10^3/ul (1.6-7.5); SEGMENTED NEUTROPHILS (M) % 60 % (39-77); SICKLE CELL 2+ (0-0); SMUDGE%M 6 % (0-0); TARGET CELLS 1+ (0-0)
[2018-11-08] MEDS: DOCUSATE SODIUM 100 MG CAP PO (12:15)
[2018-11-08] MEDS: MAGNESIUM HYDROXIDE 30ML CUP PO (13:15)
== END 2018-11-08 18:30 | disposition home or self-care (01) | DRG 811 ==
LOC: PP2 11-07 14:20 → E/R 13:28 → ICU 15:30
PROVIDERS: Internal Medicine
PROC: 30233N1 Transfusion of Nonautologous Red Blood Cells into Peripheral Vein, Percutaneous Approach (ICD-10-PCS; 2018-11-06)
PROC: 5A1D70Z Performance of Urinary Filtration, Intermittent, Less than 6 Hours Per Day (ICD-10-PCS; 2018-11-06)
PROC: 30233N1 Transfusion of Nonautologous Red Blood Cells into Peripheral Vein, Percutaneous Approach (ICD-10-PCS; principal; 2018-11-07)
PROC: 5A1D70Z Performance of Urinary Filtration, Intermittent, Less than 6 Hours Per Day (ICD-10-PCS; 2018-11-07)
DX: D57.1 Sickle-cell disease without crisis (principal); N18.6 End stage renal disease; I21.4 Non-ST elevation (NSTEMI) myocardial infarction; E87.2 Acidosis; R65.10 Systemic inflammatory response syndrome (SIRS) of non-infectious origin without acute organ dysfunction; I12.0 Hypertensive chronic kidney disease with stage 5 chronic kidney disease or end stage renal disease; D57.00 Hb-SS disease with crisis, unspecified; E87.5 Hyperkalemia; K74.60 Unspecified cirrhosis of liver; Z99.2 Dependence on renal dialysis; N40.0 Benign prostatic hyperplasia without lower urinary tract symptoms
CPT/HCPCS: 36430; 71045; 80048; 80053; 82728; 83036; 83540; 83605; 83735; 84100; 84484; 85014; 85018; 85025; 85610; 85730; 86706; 86850; 86870; 86900; 86901; 86920; 87040-91; 87081; 87340; 90935; 93005; 99285-25